=== PATIENT | male | born 1955 | race Caucasian/White ===

== ENCOUNTER 2016-11-30 23:40 | Emergency (ER) | payer OTHER ==
[~2016-11-30] VITALS: Ht 182.9 cm; Wt 70.3 kg
[2016-12-01] MEDS ORDERED: AZITHROMYCIN 250 MG TABLET ONE (01:20)
[2016-12-01] MEDS ORDERED: IV NS 0.9% 0 ML ONE (01:21)
[2016-12-01] MEDS ORDERED: IV SET PRIMARY 1 EA INFUS.SET MC ONE (01:21)
[2016-12-01] MEDS ORDERED: KETOROLAC TROMETHAMINE INJ 60 MG/2 ML VIAL IM ONE ×2 (01:25→01:30)
[2016-12-01] MEDS ORDERED: IV NS 0.9% 1,000 ML BAG IV ONE (01:30)
[2016-12-01] MEDS ORDERED: AZITHROMYCIN 250 MG TABLET PO ONE (01:30)
[2016-12-01 02:43] VITALS: BP 148/90
== END 2016-12-01 02:43 | disposition home or self-care (01) ==
LOC: ER 23:42
DX: R06.00 Dyspnea, unspecified (principal); G89.29 Other chronic pain; M54.9 Dorsalgia, unspecified; F11.20 Opioid dependence, uncomplicated; Z76.5 Malingerer [conscious simulation]
CPT/HCPCS: 71010-TC; A4606; J1885; J7030; Z7610